=== PATIENT | female | born 1950 | race Two or more races ===

== ENCOUNTER 2019-11-10 15:29 | Outpatient (CLI) | payer BC | END 2019-11-10 23:59 | disposition home or self-care (01) | LOC: MSC 15:29 | PROVIDERS: ATTEND Internal Medicine | DX: R07.9 Chest pain, unspecified (principal); R00.2 Palpitations; J06.9 Acute upper respiratory infection, unspecified; F41.8 Other specified anxiety disorders; E66.8 Other obesity; R53.1 Weakness ==